=== PATIENT | male | born 1995 | race African-American/Black ===

== ENCOUNTER 2023-04-11 10:31 | Inpatient (IN) ==
[2023-04-11 13:16] LABS: ABS Eosinophils 0.2 10^3/uL (0.0-0.5); ABS Lymphocytes 1.9 10^3/uL (1.0-4.8); ABS Monocytes 0.4 10^3/uL (0.0-1.1); ABS Neutrophils 1.7 10^3/uL (1.5-7.6); ABS Nucleated RBC 0.01 10^3/ul; Eosinophil % 4.7 %; Hematocrit 39.3 % (38-53); Hemoglobin 13.5 g/dL (13.2-16.3); Lymphocyte % 44.9 %; Mean Corpuscular Hemoglobin 30.3 pg (27-33); Mean Corpuscular Hgb Conc 34.4 g/dL (31-36); Mean Corpuscular Volume 88.1 fL (80-97); Nucleated Red Blood Cells % 0.2 /100 WBC (0.0-0.4); Platelet Count 207 10^3/uL (150-450); Red Blood Count 4.45 10^6/uL (4.06-5.63); Red Cell Distribution Width 13.5 % (12-17); Venous Bicarbonate HCO3 26.1 mmol/L (24-28); White Blood Count 4.2 10^3/uL (3.6-10.2)
[2023-04-11 13:33] LABS: Albumin 4.3 g/dL (3.2-5.2); Albumin/Globulin Ratio 1.8 (1-3); Calcium 9.3 mg/dL (8.6-10.3); Creatinine, Serum 1.14 mg/dL (0.67-1.17); Globulin 2.4 g/dL (2-4); Magnesium 1.8 mg/dL (1.9-2.7); Potassium 4.3 mmol/L (3.5-5.0); Total Bilirubin 0.5 mg/dL (0.2-1.0); Total Protein 6.7 g/dL (6.4-8.9)
[2023-04-11 14:05] LABS: PCO2 Arterial 33 mmHg (35-45); PO2 Arterial 151 mmHg (80-100)
[2023-04-11] MEDS ORDERED: NS 0.9% 1000 ml BAG 1,000 ML IV ONE (14:21)
[2023-04-11] MEDS ORDERED: Al Hydrox/Mg Hydrox/Simet LIQ 30 ML UDC PO PRN (17:53)
[2023-04-11] MEDS ORDERED: Nicotine GUM 2MG FRUIT FLAVOR PO PRN (18:00)
[2023-04-11] MEDS ORDERED: diphenhydraMINE PO* 50 MG Q6H PRN PO (18:00)
[2023-04-11] MEDS ORDERED: LORazepam 2 mg VIAL 1 ml IM ONE ×2 (18:22→19:45)
[2023-04-11] MEDS ORDERED: LORazepam 2 mg VIAL 1 ml ONE (18:26)
[2023-04-11] MEDS ORDERED: Lorazepam PYXIS KEY PRN ×2 (18:33→20:55)
[2023-04-12] MEDS: Vitamin THERAPEUTIC TAB PO SCH (07:26)
[2023-04-12] MEDS: Nicotine PATCH 21 MG/24 HR PATCH TRANSDERM SCH ×2 (07:27→07:34)
[2023-04-12] MEDS ORDERED: Haloperidol 5 mg/ml SDV IV/IM 5 MG/ML AMP IM PRN (10:59)
[2023-04-12] MEDS ORDERED: Lorazepam PYXIS KEY PRN (10:59)
[2023-04-12] MEDS ORDERED: Haloperidol 5 mg/ml SDV IV/IM 5 MG/ML AMP IM ONE (10:59)
[2023-04-12] MEDS ORDERED: LORazepam 2 mg VIAL 1 ml IM ONE (10:59)
[2023-04-13] MEDS: Nicotine PATCH 21 MG/24 HR PATCH TRANSDERM SCH (08:53)
[2023-04-13] MEDS: Vitamin THERAPEUTIC TAB PO SCH (08:53)
[2023-04-13 13:56] VITALS: BP 112/70
[2023-04-13] MEDS ORDERED: LORazepam 2 mg VIAL 1 ml ONE (16:44)
[2023-04-13] MEDS ORDERED: Haloperidol 5 mg/ml SDV IV/IM 5 MG/ML AMP ONE (16:44)
[2023-04-13] MEDS ORDERED: Lorazepam PYXIS KEY PRN (17:22)
[2023-04-13] MEDS ORDERED: LORazepam 2 mg VIAL 1 ml IM ONE (18:00)
[2023-04-13] MEDS ORDERED: Haloperidol 5 mg/ml SDV IV/IM 5 MG/ML AMP IM ONE (18:00)
[2023-04-14] MEDS: Vitamin THERAPEUTIC TAB PO SCH (09:31)
[2023-04-14] MEDS: Nicotine PATCH 21 MG/24 HR PATCH TRANSDERM SCH (09:31)
[2023-04-15] MEDS: Vitamin THERAPEUTIC TAB PO SCH (09:04)
[2023-04-15] MEDS: Nicotine PATCH 21 MG/24 HR PATCH TRANSDERM SCH (09:04)
[2023-04-15] MEDS ORDERED: LORazepam 2 mg VIAL 1 ml IM ONE (16:06)
[2023-04-15] MEDS ORDERED: Lorazepam PYXIS KEY PRN (16:06)
[2023-04-15] MEDS ORDERED: Haloperidol 5 mg/ml SDV IV/IM 5 MG/ML AMP ONE (16:06)
[2023-04-15] MEDS ORDERED: Haloperidol 5 mg/ml SDV IV/IM 5 MG/ML AMP IM ONE (16:06)
[2023-04-15] MEDS ORDERED: LORazepam 2 mg VIAL 1 ml ONE (16:07)
[2023-04-16] MEDS: Nicotine PATCH 21 MG/24 HR PATCH TRANSDERM SCH (08:59)
[2023-04-16] MEDS: Vitamin THERAPEUTIC TAB PO SCH (08:59)
[2023-04-16] MEDS ORDERED: OLANZapine 5 mg TAB *ODT PO PRN (10:10)
[2023-04-16] MEDS ORDERED: OLANZapine 5 mg TAB *ODT ONE (10:13)
== END 2023-04-16 16:35 | disposition home or self-care (01) | DRG 897 ==
LOC: EDBD → EDUNIT# → ED 10:31 → EDHOLD 16:05 → BSU 18:07
PROVIDERS: ADMIT Psychiatry & Neurology Addiction Psychiatry; ATTEND Psychiatry & Neurology Psychiatry